=== PATIENT | female | born 1965 | race Caucasian/White ===

== ENCOUNTER 2016-04-28 11:25 | Emergency (ER) | payer OTHER ==
[~2016-04-28 11:25] MED LIST: DOXY100 PO
[2016-04-28 11:42] VITALS: BP 129/58; PULSE 84; RESP 16; TEMP 98.3; O2SAT 98
[2016-04-28] MEDS ORDERED: HYDR50TA15 PO (11:47)
[2016-04-28] MEDS ORDERED: CELE10TA PO (11:47)
--- NOTE | 2016-04-28 12:02 | PD ---
HPI Chief Complaint: Psychiatric Symptoms Time Seen by Provider: 11:59 Travel History International Travel<30 days: No Contact w/Intl Traveler<30days: No Traveled to known affect area: No History of Present Illness HPI 51 year old female with history of anxiety and depression presents to the ED under Wren Act for evaluation of psychiatric symptoms. According to the BA paperwork the patient stated she is "crazy and has a crack cocaine problem," wants to kill herself and drug dealers. On presentation the patient endorses SI and HI. She states that she "got a 38 yesterday, drove through [employer] showing all the dope boys that I'm not playing." She states that "they make you do things for free drugs." States that she is also suicidal, will "take a bunch of pills or shoot myself." She states " I want to stop using." She states last crack cocaine use was yesterday. States that she took Vistaril today because she is anxious. She denies attempted overdose today. Complains of chronic back pain, no worse today. Denies dysuria, vaginal discharge or odor. No other somatic complaints. PFSH Past Medical History Anxiety: Yes Depression: Yes Diminished Hearing: No Genitourinary: Yes (HX OF TUBAL ) Psychiatric: Yes ?: Not Menopausal: Yes : 4 Para: 1 Miscarriage: 2 : 1 Past Surgical History Genitourinary Surgery: Yes (KIDNEY STONE LITHOTRIPSY) Social History Alcohol Use: Yes (STATES HAS ABOUT TWO DRINKS PER MONTH) Tobacco Use: Yes (HALF A PACK PER DAY) Substance Use: Yes (COCAINE YESTERDAY) Allergies-Medications (Allergen,Severity, Reaction): Coded Allergies: Codeine (Verified Allergy, Unknown, 04/28/16) Penicillin (Verified Allergy, Unknown, 04/28/16) Reported Meds & Prescriptions Reported Meds & Active Scripts Active Reported Hydralazine (Hydralazine HCl) 50 Mg Tab 50 Mg PO BID Take with a meal Celexa (Citalopram Hydrobromide) 10 Mg Tab 10 Mg PO DAILY Review of Systems Except as stated in HPI: all other systems reviewed are Neg Physical Exam Narrative GENERAL: Well-nourished, well-developed white female in no acute distress. PSYCHIATRIC: No delusional thought processes. No hallucinations. Anxious. SKIN: Warm and dry. There is a ~1cm blister under each breast. It is surrounded by a small area of erythema but no other cellulitic streaking. HEAD: Normocephalic. EYES: No scleral icterus. No injection or drainage. NECK: Supple, trachea midline. No JVD or lymphadenopathy. CARDIOVASCULAR: Regular rate and rhythm without murmurs, gallops, or rubs. RESPIRATORY: Breath sounds clear and equal bilaterally. No accessory muscle use. GASTROINTESTINAL: Abdomen soft, non-tender, nondistended. MUSCULOSKELETAL: No cyanosis, or edema. The patient is ambulatory and moves extremities spontaneously. BACK: Nontender without obvious deformity. No CVA tenderness. Data Data Last Documented VS Vital Signs Date Time Temp Pulse Resp B/P Pulse Ox O2 Delivery O2 Flow Rate FiO2 04/28/16 11:42 98.3 84 16 129/58 98 Orders Complete Blood Count With Diff (04/28/16 11:58) Comprehensive Metabolic Panel (04/28/16 11:58) Urinalysis - C+S If Indicated (04/28/16 11:58) Drug Screen, Random Urine (04/28/16 11:58) Alcohol (Ethanol) (04/28/16 11:58) Psych Screen (04/28/16 11:58) Salicylates (Aspirin) (04/28/16 12:19) Tylenol (Acetaminophen) (04/28/16 12:19) Diet Regular Basic (04/28/16 Dinner) Labs Laboratory Tests Test 04/28/16 04/28/16 04/28/16 12:00 12:05 12:17 Sodium Level 145 MEQ/L Potassium Level 4.1 MEQ/L Chloride Level 108 MEQ/L Carbon Dioxide Level 29.9 MEQ/L Anion Gap 7 MEQ/L Blood Urea Nitrogen 16 MG/DL Creatinine 0.92 MG/DL Estimat Glomerular Filtration 65 ML/MIN Rate Random Glucose 105 MG/DL Calcium Level 9.0 MG/DL Total Bilirubin 0.1 MG/DL Aspartate Amino Transf 10 U/L (AST/SGOT) Alanine Aminotransferase 16 U/L (ALT/SGPT) Alkaline Phosphatase 99 U/L Total Protein 6.5 GM/DL Albumin 3.4 GM/DL Ethyl Alcohol Level LESS THAN 3 MG/DL Urine Color LIGHT-YELLOW Urine Turbidity CLEAR Urine pH 5.5 Urine Specific [place] 1.015 Urine Protein NEG mg/dL Urine Glucose (UA) NEG mg/dL Urine Ketones NEG mg/dL Urine Occult Blood NEG Urine Nitrite NEG Urine Bilirubin NEG Urine Urobilinogen LESS THAN 2.0 MG/DL Urine Leukocyte Esterase NEG Urine RBC LESS THAN 1 /hpf Urine WBC LESS THAN 1 /hpf Urine Squamous Epithelial 1 /hpf Cells Microscopic Urinalysis Comment CULT NOT INDICATED White Blood Count 6.9 TH/MM3 Red Blood Count 3.75 MIL/MM3 Hemoglobin 12.2 GM/DL Hematocrit 36.2 % Mean Corpuscular Volume 96.4 FL Mean Corpuscular Hemoglobin 32.5 PG Mean Corpuscular Hemoglobin 33.7 % Concent Red Cell Distribution Width 14.1 % Platelet Count 207 TH/MM3 Mean Platelet Volume 6.4 FL Neutrophils (%) (Auto) 51.8 % Lymphocytes (%) (Auto) 33.9 % Monocytes (%) (Auto) 12.2 % Eosinophils (%) (Auto) 1.3 % Basophils (%) (Auto) 0.8 % Neutrophils # (Auto) 3.6 TH/MM3 Lymphocytes # (Auto) 2.3 TH/MM3 Monocytes # (Auto) 0.8 TH/MM3 Eosinophils # (Auto) 0.1 TH/MM3 Basophils # (Auto) 0.1 TH/MM3 CBC Comment DIFF FINAL Differential Comment Salicylates Level 1.9 MG/DL Acetaminophen Level LESS THAN 2.0 MCG/ML MDM Medical Decision Making Medical Screen Exam Complete: Yes Emergency Medical Condition: Yes Differential Diagnosis Adjustment disorder versus anxiety versus bipolar versus depression versus dementia versus electrolyte disorder versus malingering versus mood disorder versus ODD versus psychosis versus PTSD versus schizophrenia versus schizoaffective disorder versus substance-induced mood disorder versus other Narrative Course 51 year old female with history of anxiety and depression presents to the ED under Wren Act for evaluation suicidal and homicidal ideation. The patient states that she "got a 38 yesterday, drove through [employer] showing all the dope boys that I'm not playing." She states that "they make you do things for free drugs." States that she is also suicidal, will "take a bunch of pills or shoot myself." She states " I want to stop using." She states last crack cocaine use was yesterday. Complains of chronic back pain, no worse today. Denies dysuria, vaginal discharge or odor. No other somatic complaints. Vitals and physical exam are reassuring. No concerning abnormalities of CBC or CMP. Alcohol less than 3. Tox screen pending. UA unremarkable. Patient is medically cleared for psychiatric evaluation. Please see psychiatric note for disposition. Diagnosis Primary Impression: Cocaine abuse Additional Impressions: Suicidal ideation Medical clearance for psychiatric admission Laura Khan Apr 28, 2016 12:02
[2016-04-28 12:30] LABS: AUTOMATED NEUTROPHIL # 3.6 TH/MM3 (1.8-7.7); BASOPHIL # 0.1 TH/MM3 (0-0.2); BASOPHIL % 0.8 % (0.0-2.0); EOSINOPHIL # 0.1 TH/MM3 (0-0.4); EOSINOPHIL % 1.3 % (0.0-4.0); HEMATOCRIT 36.2 % (35.0-46.0); HEMO FLAGS DIFF FINAL; LYMPH % 33.9 % (9.0-44.0); LYMPHOCYTE # 2.3 TH/MM3 (1.0-4.8); MEAN CELL VOLUME 96.4 FL (80.0-100.0); MEAN CORPUSCULAR HEMOGLOBIN 32.5 PG (27.0-34.0); MEAN CORPUSCULAR HGB CONC 33.7 % (32.0-36.0); MONO % 12.2 % (0.0-8.0); NEUT % 51.8 % (16.0-70.0); PLATELET COUNT 207 TH/MM3 (150-450); RED BLOOD COUNT 3.75 MIL/MM3 (4.00-5.30); RED CELL DISTRIBUTION WIDTH 14.1 % (11.6-17.2); WHITE BLOOD COUNT 6.9 TH/MM3 (4.0-11.0)
[2016-04-28 12:43] LABS: ALT (GPT) 16 U/L (10-53); ANION GAP 7 MEQ/L (5-15); AST (GOT) 10 U/L (15-37); BICARBONATE 29.9 MEQ/L (21.0-32.0); BLOOD UREA NITROGEN 16 MG/DL (7-18); CHLORIDE 108 MEQ/L (98-107); GLOMERULAR FILTRATION RATE 65 ML/MIN (>89); POTASSIUM 4.1 MEQ/L (3.5-5.1); SODIUM (NA) 145 MEQ/L (136-145)
[2016-04-28 12:45] LABS: ALKALINE PHOSPHATASE 99 U/L (45-117); TOTAL BILIRUBIN ADULT 0.1 MG/DL (0.2-1.0)
[2016-04-28 17:08] LABS: BLOOD, URINE NEG (NEG); COMMENT (UR) CULT NOT INDICATED; CULTURE IF INDICATED CULT NOT INDICATED; GLUCOSE,URINE NEG (NEG); KETONE, URINE NEG (NEG); NITRITE,URINE NEG (NEG); PH, URINE 5.5 (5.0-8.5); SQUAMOUS EPITHELIAL CELL URINE 1 /hpf (0-5); URINE COLOR LIGHT-YELLOW (YELLW/STRAW)
[2016-04-28 17:11] LABS: AMPHETAMINE, URINE NEG (NEG); BARBITURATES, URINE NEG (NEG); COCAINE, URINE POS (NEG)
[2016-04-28 17:55] VITALS: BP_SYST 125; BP_SYST 133; BP_DIAS 65; BP_DIAS 73; PULSE 77; PULSE 80; RESP 18; O2SAT 97
[2016-04-28] MEDS ORDERED: PRAZ1CAP PO (19:03)
[2016-04-28] MEDS ORDERED: MIRTA15 PO (19:04)
[2016-04-28] MEDS ORDERED: CITA40TA4 PO (19:04)
[2016-04-28] MEDS ORDERED: CYCL1TAB29 PO (19:06)
[2016-04-28] MEDS ORDERED: QUET1TAB10 PO (19:06)
[2016-04-28 22:20] VITALS: BP 111/71; PULSE 66; RESP 18; O2SAT 97
[2016-04-29 02:55] VITALS: BP 127/79; PULSE 54; RESP 18; TEMP 97.4; O2SAT 99
[2016-04-29 06:09] VITALS: BP 130/72; PULSE 68; RESP 18
[2016-04-29 08:30] VITALS: BP 130/72
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
== END 2016-04-29 08:44 | disposition home or self-care (01) ==
LOC: NEDAMB 11:25 → NEPJ 04-29 08:44
DX: F14.10 Cocaine abuse, uncomplicated (principal); R45.851 Suicidal ideations; F14.20 Cocaine dependence, uncomplicated; F41.9 Anxiety disorder, unspecified; F17.210 Nicotine dependence, cigarettes, uncomplicated
CPT/HCPCS: 80053; 80307; 80320; 80329; 81001; 85025; 99284; G0480

== ENCOUNTER 2016-09-04 18:15 | Emergency (ER) | payer OTHER ==
[2016-09-04 19:03] VITALS: BP 134/85; PULSE 77; TEMP 98.1; O2SAT 98
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
[2016-09-04] MEDS ORDERED: OLANZapine IM 10 MG VIAL IM ONE (20:30)
[2016-09-04 21:07] LABS: AUTOMATED NEUTROPHIL # 4.3 TH/MM3 (1.8-7.7); BASOPHIL # 0.1 TH/MM3 (0-0.2); BASOPHIL % 0.8 % (0.0-2.0); EOSINOPHIL # 0.2 TH/MM3 (0-0.4); EOSINOPHIL % 2.2 % (0.0-4.0); HEMATOCRIT 35.4 % (35.0-46.0); HEMO FLAGS DIFF FINAL; LYMPH % 33.7 % (9.0-44.0); LYMPHOCYTE # 2.6 TH/MM3 (1.0-4.8); MEAN CELL VOLUME 95.5 FL (80.0-100.0); MEAN CORPUSCULAR HEMOGLOBIN 33.5 PG (27.0-34.0); MONO % 7.2 % (0.0-8.0); NEUT % 56.1 % (16.0-70.0); PLATELET COUNT 227 TH/MM3 (150-450); RED CELL DISTRIBUTION WIDTH 13.8 % (11.6-17.2); WHITE BLOOD COUNT 7.7 TH/MM3 (4.0-11.0)
[2016-09-04 21:19] LABS: ANION GAP 8 MEQ/L (5-15)
[2016-09-04 21:23] LABS: ACETAMINOPHEN LESS THAN 2.0 MCG/ML (10.0-30.0); ALKALINE PHOSPHATASE 111 U/L (45-117); ALT (GPT) 19 U/L (10-53); AST (GOT) 21 U/L (15-37); BICARBONATE 30.2 MEQ/L (21.0-32.0); BLOOD UREA NITROGEN 15 MG/DL (7-18); CHLORIDE 107 MEQ/L (98-107); GLOMERULAR FILTRATION RATE 46 ML/MIN (>89); POTASSIUM 3.9 MEQ/L (3.5-5.1); SODIUM (NA) 145 MEQ/L (136-145); TOTAL BILIRUBIN ADULT 0.2 MG/DL (0.2-1.0)
[2016-09-04 21:24] VITALS: BP 140/95; PULSE 77; RESP 18; O2SAT 95
[2016-09-05 02:27] VITALS: BP 120/73; PULSE 60; RESP 18; O2SAT 99
[2016-09-05 06:00] VITALS: BP 117/74; PULSE 54; RESP 18; O2SAT 100
[2016-09-05 10:02] VITALS: BP 161/82; PULSE 83; O2SAT 81
[2016-09-05 10:49] LABS: AMPHETAMINE, URINE NEG (NEG); BARBITURATES, URINE NEG (NEG); COCAINE, URINE POS (NEG)
[2016-09-05 14:35] VITALS: BP 130/88; PULSE 80; RESP 20; O2SAT 97
--- NOTE | 2016-09-05 15:26 | PD ---
History of Present Illness Chief Complaint: Psychiatric Symptoms Time Seen by Provider: 14:45 Travel History International Travel<30 Days: No Contact w/Intl Traveler<30days: No Known affected area: No Legal Status Legal Status: Wren Act Wren Act Signed By: Margarita Alcaraz History of Present Illness: History of Present Illness HPI This is a 51-year-old female with hx of bipolar disorder, ADHD as well as substance use disorder who presents under Wren act initiated by the Police Department. According to her paperwork the patient has been off all of her psychiatric medications for several days and that she believes that if she is left alone she will seek to hurt those around her and possibly herself . As per ED documentation included in this report " The patient reports that she has been "partying" for 6 days, is not slept or eaten anything during that time. She quit taking her medication a week ago because she has been away from home partying. She admits to using cocaine. She denies any other drug use. She admits to having thoughts of hurting herself as well as most men. She reports that men make her too "bad things" and therefore she would like to kill all men." The patient was monitored in J pod with no behavioral concerns and no suicidality or homicidality. EMR is reviewed. She has one previous admission to [facility] in 2016 with dx of mood disorder, nos. Current toxicology is positive for cocaine. Patient is seen. She is alert, oriented and cooperative. Speech is clear and logical. Her thoughts are clear and organized. She denies experiencing any hallucinations, delusions or paranoia. Mood is depressed with remorse over recent relapse. She tells me that she has been " partying and using crack" for the past 6 days. She also tells me that she was " getting high" and not " getting crazy". She does admit having said she wanted to kill people and more specifically men. " I am talking about the dope dealers because if they were then there would be no more drugs but I know that is not an option. I was just angry at the time with myself for going out and using again" She tells me that she is in tx at [facility] and last took medications 1 week ago. At this time she is requesting discharge as she wants to be able to go with her family to [place] to celebrate her grandmother's birthday on . She has her medication at home and will resume her medications once she is discharged. [facility] Past Medical History Anxiety: Yes Depression: Yes Diminished Hearing: No Genitourinary: Yes (HX OF TUBAL ) Psychiatric: Yes Menopausal: Yes : 4 Para: 1 Miscarriage: 2 : 1 Past Surgical History Genitourinary Surgery: Yes (KIDNEY STONE LITHOTRIPSY) Psychiatric History Psychiatric History Hx Psychiatric Treatment: HX: BI-POLAR DISORDER, ADHD, DEPRESSION. Receives outpatietn care at [facility]. History of Inpatient Treatment: Yes ([facility] 2015) Guns or firearms in home: No Social History Single female. Lives with a female roommate who has been sober x 28 years. She is on disability Hx Alcohol Use: Yes (STATES HAS ABOUT TWO DRINKS PER MONTH) Hx Tobacco Use: Yes (HALF A PACK PER DAY) Hx Substance Use: Yes Substance Use Type: Alcohol, Crack, Cocaine, Synth Opiates-Pain Pills Hx of Substance Use Treatment: Yes (Has been in rehab programs x 6 times. Was sober x 3 months) Family Psychiatric History Neagtive Allergies-Medications (Allergen,Severity, Reaction): Coded Allergies: Codeine (Verified Allergy, Unknown, 09/04/16) Penicillin (Verified Allergy, Unknown, 09/04/16) Reported Meds & Prescriptions Reported Meds & Active Scripts Active Active Prescriptions or Reported Medications Unobtainable Review of Systems Except as stated in HPI: all other systems reviewed are Neg Psychiatric: COMPLAINS OF: Anxiety Exam Alert: Yes [place]: Person (ox4) Mood: Anxious Affect: Appropriate Speech: Clear, Logical Eye Contact: Normal Memory Intact: Comment (no impairmetn) Hallucinations: Other (negative) Delusions: No Suicidal: Ideation (neagtive) Homicidal: Ideation (neagtive) Insight/Judgement Fair. Not impaired. MDM Medical Decision Making Medical Record Reviewed: Yes Assessment/Plan 51 year old female with hx of bipolar disorder as well as PTSD and substance use disorder under a BA after she verbalized both homicidal and suicidal ideation in context of cocaine intoxication. patient at this time is clear and denies any suicidal homicidal ideation, intent or plan. At this time she does not meet BA criteria and is requesting discharge. She will follow up with [facility] outpatient. I have provided psychoeducation. Abstinence is strongly recommended. Involvement in recovery group a must as well. Orders Complete Blood Count With Diff (09/04/16 19:48) Comprehensive Metabolic Panel (09/04/16 19:48) Psych Screen (09/04/16 19:48) Drug Screen, Random Urine (09/04/16 19:48) Alcohol (Ethanol) (09/04/16 19:48) Salicylates (Aspirin) (09/04/16 19:48) Tylenol (Acetaminophen) (09/04/16 19:48) Olanzapine Inj (Zyprexa Inj) (09/04/16 20:30) Diet Regular Basic (09/05/16 Breakfast) Diet Regular Basic (09/05/16 Lunch) Diet Regular Basic (09/05/16 Dinner) Results Vital Signs Date Time Temp Pulse Resp B/P Pulse Ox O2 Delivery O2 Flow Rate FiO2 09/05/16 14:35 80 20 130/88 97 Room Air 09/05/16 10:02 83 161/82 81 09/05/16 06:00 54 18 117/74 100 Room Air 09/05/16 02:27 60 18 120/73 99 Room Air 09/04/16 21:24 77 18 140/95 95 Room Air 09/04/16 19:03 98.1 77 134/85 98 Laboratory Tests Test 09/04/16 09/05/16 20:30 10:05 White Blood Count 7.7 Red Blood Count 3.70 Hemoglobin 12.4 Hematocrit 35.4 Mean Corpuscular Volume 95.5 Mean Corpuscular Hemoglobin 33.5 Mean Corpuscular Hemoglobin 35.0 Concent Red Cell Distribution Width 13.8 Platelet Count 227 Mean Platelet Volume 7.1 Neutrophils (%) (Auto) 56.1 Lymphocytes (%) (Auto) 33.7 Monocytes (%) (Auto) 7.2 Eosinophils (%) (Auto) 2.2 Basophils (%) (Auto) 0.8 Neutrophils # (Auto) 4.3 Lymphocytes # (Auto) 2.6 Monocytes # (Auto) 0.6 Eosinophils # (Auto) 0.2 Basophils # (Auto) 0.1 CBC Comment DIFF FINAL Differential Comment Sodium Level 145 Potassium Level 3.9 Chloride Level 107 Carbon Dioxide Level 30.2 Anion Gap 8 Blood Urea Nitrogen 15 Creatinine 1.23 Estimat Glomerular Filtration 46 Rate Random Glucose 125 Calcium Level 8.6 Total Bilirubin 0.2 Aspartate Amino Transf 21 (AST/SGOT) Alanine Aminotransferase 19 (ALT/SGPT) Alkaline Phosphatase 111 Total Protein 6.6 Albumin 3.4 Salicylates Level 2.8 Acetaminophen Level LESS THAN 2.0 Ethyl Alcohol Level LESS THAN 3 Urine Opiates Screen NEG Urine Barbiturates Screen NEG Urine Amphetamines Screen NEG Urine Benzodiazepines Screen NEG Urine Cocaine Screen POS Urine Cannabinoids Screen NEG Diagnosis Primary Impression: Cocaine abuse Additional Impression: Substance induced mood disorder Psychiatrically Cleared: Yes Med/ Other Pt Specific Info: No Change to Meds Prescriptions Unable to Obtain Active Prescriptions or Reported Meds Disposition: 01 DISCHARGE HOME Condition: Stable Problem Qualifiers Harper Jacques [facility] September 05, 2016 15:26
[2016-09-05 16:18] VITALS: BP 130/88; PULSE 80; RESP 20; O2SAT 97
== END 2016-09-05 16:47 | disposition home or self-care (01) ==
LOC: NEDAMB 18:15 → NEPJ 09-05 16:47
DX: F14.10 Cocaine abuse, uncomplicated (principal); F39 Unspecified mood [affective] disorder; F41.8 Other specified anxiety disorders; F17.210 Nicotine dependence, cigarettes, uncomplicated; F90.9 Attention-deficit hyperactivity disorder, unspecified type; F43.10 Post-traumatic stress disorder, unspecified
CPT/HCPCS: 80053; 80307; 85025; 96372

== ENCOUNTER 2016-11-21 10:00 | Emergency (ER) | payer SELFPAY ==
[2016-11-21 10:11] VITALS: BP 131/81; PULSE 93; RESP 20; TEMP 97.4; O2SAT 98
[2016-11-21] MEDS ORDERED: SODIUM CHLOR 0.9% 1000 ML INJ 1,000 ML IV SCH (10:32)
[2016-11-21 10:38] VITALS: O2SAT 100
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
[2016-11-21] MEDS ORDERED: LORazepam 2 MG/ML VIAL IV PUSH ONE (10:45)
[2016-11-21] MEDS ORDERED: SODIUM CHLORIDE 0.9% FLUSH 5 ML FLUSH IV FLUSH PRN (10:45)
[2016-11-21 10:49] LABS: AUTOMATED NEUTROPHIL # 9.6 TH/MM3 (1.8-7.7); BASOPHIL # 0.1 TH/MM3 (0-0.2); BASOPHIL % 0.6 % (0.0-2.0); EOSINOPHIL # 0.1 TH/MM3 (0-0.4); EOSINOPHIL % 0.7 % (0.0-4.0); HEMATOCRIT 36.9 % (35.0-46.0); LYMPH % 12.8 % (9.0-44.0); LYMPHOCYTE # 1.5 TH/MM3 (1.0-4.8); MEAN CELL VOLUME 93.9 FL (80.0-100.0); NEUT % 78.9 % (16.0-70.0); PLATELET COUNT 245 TH/MM3 (150-450); RED BLOOD COUNT 3.93 MIL/MM3 (4.00-5.30); RED CELL DISTRIBUTION WIDTH 14.1 % (11.6-17.2); WHITE BLOOD COUNT 12.1 TH/MM3 (4.0-11.0)
[2016-11-21 10:52] LABS: HEMO FLAGS DIFF FINAL
[2016-11-21 11:00] LABS: CHLORIDE 110 MEQ/L (98-107); POTASSIUM 3.7 MEQ/L (3.5-5.1); SODIUM (NA) 144 MEQ/L (136-145)
[2016-11-21 11:04] LABS: ANION GAP 9 MEQ/L (5-15); BICARBONATE 25.5 MEQ/L (21.0-32.0); BLOOD UREA NITROGEN 19 MG/DL (7-18)
[2016-11-21 11:06] LABS: ALT (GPT) 28 U/L (10-53)
[2016-11-21 11:07] LABS: AST (GOT) 53 U/L (15-37); GLOMERULAR FILTRATION RATE 40 ML/MIN (>89)
[2016-11-21 11:08] LABS: TOTAL BILIRUBIN ADULT 0.6 MG/DL (0.2-1.0)
[2016-11-21 11:09] LABS: ALKALINE PHOSPHATASE 90 U/L (45-117); CREATINE KINASE 821 U/L (26-192)
[2016-11-21 11:23] LABS: CKMB 7.6 NG/ML (0.5-3.6)
[2016-11-21 11:24] VITALS: PULSE 87; RESP 16; O2SAT 98
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
[2016-11-21 12:09] VITALS: BP 90/45; PULSE 86; RESP 16; O2SAT 100
[2016-11-21 12:23] LABS: ACETAMINOPHEN LESS THAN 2.0 MCG/ML (10.0-30.0)
[2016-11-21] MEDS ORDERED: SODIUM CHLOR 0.9% 1000 ML INJ 1,000 ML IV ONE (13:15)
[2016-11-21 13:51] VITALS: BP 101/63; PULSE 82; RESP 16; TEMP 97.8; O2SAT 96
[2016-11-21 15:38] VITALS: BP 124/69; PULSE 83; RESP 16; O2SAT 100
== END 2016-11-21 16:39 | disposition home or self-care (01) ==
LOC: PHED 10:00
DX: G92 Toxic encephalopathy (principal); T43.624A Poisoning by amphetamines, undetermined, initial encounter; F19.10 Other psychoactive substance abuse, uncomplicated; F14.10 Cocaine abuse, uncomplicated; F17.200 Nicotine dependence, unspecified, uncomplicated; Z86.59 Personal history of other mental and behavioral disorders; Z87.42 Personal history of other diseases of the female genital tract
CPT/HCPCS: 70450; 80053; 80307; 82550; 82552; 85025; 96361; 96374; 99291; J2060; J7030